=== PATIENT | male | born 1985 | race Caucasian/White ===

== ENCOUNTER 2016-10-18 06:53 | Emergency (ER) | payer OTHER ==
[~2016-10-18] VITALS: Ht 188 cm; Wt 104.3 kg
[2016-10-18] MEDS ORDERED: FLEXERIL10 MG PO (08:36)
[2016-10-18] MEDS ORDERED: PERCOCET 325-51 TAB PO (08:36)
[2016-10-18] MEDS ORDERED: MEDROL DOSEPAK4 MG PO (08:37)
== END 2016-10-18 08:35 | disposition short-term general hospital (02) ==
LOC: ER 06:53
DX: G89.18 Other acute postprocedural pain (principal); M54.9 Dorsalgia, unspecified; Z98.890 Other specified postprocedural states
CPT/HCPCS: J1170; J1885; J2405